=== PATIENT | female | born 1930 | race Caucasian/White ===

== ENCOUNTER → 2016-09-16 | Outpatient (CLI) | payer OTHER ==
[~2016-09-16] MED LIST: ADVIL200 M1; ALENDRONATE SOD70 MG; ALTOPREV40 MG PO; ASPIRIN PO; ATIVAN PO; BYSTOLIC10 MG; CLARITIN10 M2 PO; COZAAR100 MG; DYAZIDE 37.5/251 CAP PO; FOSAMAX PO; KCL PO; LORTAB 7.5-5001 TAB; METOPROLOL SUCC25 MG PO; NORCO1 TAB 10/3 PO; PRILOSEC20 M1; SYNTHROID PO; SYNTHROID125; TAGAMET PO; VITAMIN B12; ZANTAC150 MG PO; ZOCOR PO; ZOCOR20 MG; ZOFRAN PO
--- NOTE | ~2016-09-16 | BD1 ---
[facility] A Service of [facility] RADIOLOGY TEXT RESULTS PATIENT: SHERRON PAREDES LOCATION: [facility] : 34 UNIT #: [id number] AGE: [address]: Rayo Pham MD SEX: F ORDER DR: [id number] [address] [address] [id number] P MR#: [id number] Acc #: [id number] NAME: SHERRON PAREDES : 1930 SEX: F STUDY DATE/TIME: 09/13/2016 9:57 UNIT: [facility] ROOM: STUDY DESCRIPTION: BD Dexa Bone Dens 1+ Site Attending Physician: Rayo Pham M.D. Referring Physician: Rayo Pham M.D. Ordering Physician: Rayo Pham M.D. Primary Care Physician: Rayo Pham M.D. MEDICAL IMAGING REPORT This report is preliminary unless electronic signature is present. EXAM Bone density scan 09/13/2016 HISTORY Health maintenance. Patient takes Synthroid. Postmenopausal. FINDINGS Bone low density scanning performed upper 4 lumbar vertebral segments and both proximal femurs in [age]-year-old, 107-pound female. Prior study performed on different scanner at [facility]. Trending could not be performed. L1-L4: Total bone mineral density 0.828 g/cm2 for T-score 2.9 standard deviation below mean for reference population normal young individuals and Z-score 0.5 standard deviations below mean for age-match population. PROXIMAL LEFT FEMUR: Total bone mineral density 0.515 g/cm2 for T-score 3.9 standard deviation below mean for reference population normal young individuals and Z-score 1.3 standard deviations below mean for age-match population. Left femoral neck bone low density 0.591 g/cm2 for T-score 3.2 standard deviation below mean for reference population normal young individuals and Z-score 0.5 standard deviations below the mean for age-match population. PROXIMAL RIGHT FEMUR: Total bone low density 0.507 g/cm2 for T-score 4.0 standard deviation below mean for reference population normal young individuals and Z-score 1.4 standard deviations below mean for age-match population. In the right femoral neck specifically the bone low density is 0.627 g/cm2 for T-score 3.0 standard deviations below mean for a reference population normal young individuals and Z-score 0.3 standard deviations below mean for age-match population. IMPRESSION [facility]. [facility] A Service of [facility] RADIOLOGY TEXT RESULTS PATIENT: SHERRON PAREDES LOCATION: [facility] : 34 UNIT #: [id number] AGE: [address]: Rayo Pham MD SEX: F ORDER DR: 1. Osteoporosis right proximal femur. Patient felt to be at significantly increased risk for fracture. Treatment options may be considered. Continued surveillance is recommended. Note is made of osteoporosis in the upper 4 lumbar vertebral segments overall as well as in both proximal femurs inclusive of the bilateral femoral necks. Dictated by... Arjun Cox M.D. THIS IS AN ELECTRONICALLY VERIFIED REPORT Arjun Cox M.D. at 09/17/2016 11:00 PM JAY/jaswant TD: 09/13/2016 22:25 JOB #: [id number] MEDICAL IMAGING REPORT Page 1 of 1
--- NOTE | ~2016-09-16 | MY11 ---
[facility] A Service [facility] RADIOLOGY TEXT RESULTS PATIENT: SHERRON PAREDES LOCATION: [facility] : 34 UNIT #: [id number] AGE: [address]: Rayo Pham MD SEX: F ORDER DR: [id number] [address] [address] [id number] P MR#: [id number] Acc #: [id number] NAME: SHERRON PAREDES : 1930 SEX: F STUDY DATE/TIME: 09/13/2016 10:02 UNIT: [facility] ROOM: STUDY DESCRIPTION: MY Mammogram Screening Dig Josue Attending Physician: Rayo Pham M.D. Referring Physician: Rayo Pham M.D. Ordering Physician: Rayo Pham M.D. Primary Care Physician: Rayo Pham M.D. MEDICAL IMAGING REPORT This report is preliminary unless electronic signature is present. EXAM Digital screening mammogram 09/13/2016 [facility] HISTORY 85-year-old woman. No risk elevation. Annual screen. COMPARISON Mammograms date to 11/10/2001 with most recent comparison 12/26/2014. FINDINGS Digital imaging of each breast was completed utilizing a two-view examination of each breast in craniocaudal and mediolateral-oblique projections. Review and interpretation of digital mammograms include a second review in conjunction with FDA-approved CAD device. There is a normal parenchymal presentation bilaterally consistent with the patient's age. There are no breast masses imaged and no parenchymal asymmetry is visualized. There are no suspicious microcalcifications and I see no focal architectural disturbance. IMPRESSION Negative screening digital mammogram. One-year followup recommended. Patients over the age of 40 are entered into a reminder system with target due date for the next mammogram. A result letter will also be sent to the patient. BIRADS: 1 Negative Dictated by... Pawel Wu M.D. [facility] A Service [facility] RADIOLOGY TEXT RESULTS PATIENT: SHERRON PAREDES LOCATION: [facility] : 34 UNIT #: [id number] AGE: [address]: Rayo Pham MD SEX: F ORDER DR: THIS IS AN ELECTRONICALLY VERIFIED REPORT Pawel Wu M.D. at 09/13/2016 11:53 AM Yue TD: 09/13/2016 11:37 JOB #: [id number] MEDICAL IMAGING REPORT Page 1 of 1
== END | disposition home or self-care (01) ==
LOC: SMAM 09-09 09:45
DX: Z12.31 Encounter for screening mammogram for malignant neoplasm of breast (principal); M81.0 Age-related osteoporosis without current pathological fracture
CPT/HCPCS: 77080; G0202